=== PATIENT | male | born 1970 | race African-American/Black ===

== ENCOUNTER 2017-04-26 00:24 | Emergency (ER) | payer OTHER ==
[~2017-04-26] VITALS: Ht 172.7 cm; Wt 74.1 kg
[~2017-04-26 00:24] MED LIST: PERCOCET 5/31 TABLET PO; STOOL SOFTENER240 MG PO; ZOFRAN ODT4 MG PO
[2017-04-26] MEDS ORDERED: BACTRIM,SEPT1 TABLET PO (02:45)
[2017-04-26 03:56] VITALS: BP 158/95
== END 2017-04-26 03:57 | disposition home or self-care (01) ==
LOC: EME 00:24
DX: L03.113 Cellulitis of right upper limb (principal); Z86.19 Personal history of other infectious and parasitic diseases
CPT/HCPCS: 73130; 99281; 99283

== ENCOUNTER 2017-05-06 10:22 | Emergency (ER) | payer OTHER ==
[~2017-05-06] VITALS: Ht 172.7 cm; Wt 74.8 kg
[~2017-05-06 10:22] MED LIST changes: +BACTRIM,SEPT1 TABLET PO
[2017-05-06] MEDS ORDERED: CLEOCIN300 MG PO (12:41)
[2017-05-06 12:54] VITALS: BP 148/83
== END 2017-05-06 13:17 | disposition home or self-care (01) ==
LOC: EME 10:22
DX: L03.113 Cellulitis of right upper limb (principal)
CPT/HCPCS: 73140; 99281; 99283